=== PATIENT | female | born 1950 | race Caucasian/White ===

== ENCOUNTER 2017-05-27 06:56 | Day surgery (SDC) | payer MEDICARE ==
--- NOTE | 2017-05-18 08:17 | HP ---
CC: Dr. Alonzo * ADMITTING HISTORY AND PHYSICAL: DATE OF ADMISSION: 05/27/17 AGE/SEX: 66 years, female. SURGEON: Dr. Kimbrough. PREOPERATIVE DIAGNOSES: 1. Calculus, right ureter. 2. Right hydronephrosis. PLANNED PROCEDURE: Right ureteroscopy, possible laser and stent insertion. HISTORY OF PRESENT ILLNESS: Dorinda Ledbetter is a 66-year-old lady who I had evaluated in November 2016 for calculus in the right ureter. She continued to have episodic pain for the last 5 to 6 months secondary to this and was recently noted to have a 9 x 5 x 6 mm calculus in the right distal ureter with very mild right hydronephrosis. It seems that this is a same calculus that has been bothering her for the last 5 to 6 months and she is now being brought in for right ureteroscopy. PAST MEDICAL HISTORY: Significant for: 1. Recurrent renal calculi. 2. Asthma. MEDICATIONS: On admission, 1. Prempro 0.3 mg daily. 2. Asmanex inhaler p.r.n. 3. Rhinocort nasal spray p.r.n. ALLERGIES: No known drug allergies (records have gastric issues with several antibiotics, but no allergies.) SOCIAL HISTORY: She is a former smoker, who quit 5 years ago. REVIEW OF SYSTEMS: She is otherwise in excellent health. She denies any chest pain or shortness of breath. PHYSICAL EXAMINATION GENERAL: Reveals a pleasant, mildly uncomfortable middle age lady. VITAL SIGNS: Blood pressure is 120/82, pulse 83 per minute and regular, temperature 96.2, oxygen saturation 99% on room air. LUNGS: Clear bilaterally. CARDIOVASCULAR: Regular rate and rhythm. S1, S2. ABDOMEN: Soft with mild right flank tenderness. IMPRESSION: This 66-year-old lady with episodic right flank pain off and on for the last 6 months secondary to a calculus in the right ureter. PLAN: Left ureteroscopy, possible laser and stent insertion. [id number]/[facility] [place] #: [id number] [facility]
--- NOTE | 2017-05-26 14:29 | HP ---
ADMITTING HISTORY AND PHYSICAL: DATE OF ADMISSION: 05/27/17 ADMITTING DIAGNOSES: 1. Calculus, right ureter. 2. Right hydronephrosis. PLANNED PROCEDURE: Right ureteroscopy, possible laser and stent insertion. HISTORY OF PRESENT ILLNESS: Dorinda Ledbetter is a 67-year-old lady who had originally been evaluated in November 2016 for a calculus in the right ureter. She continues to have episodic pain for the last 5 to 6 months and was recently noted to have a 9 x 5 x 6 mm calculus in the right distal ureter with mild right hydronephrosis. It seems to be that this is the same calculus that has been bothering her for the last 5 to 6 months and she is now being brought in for right ureteroscopy. PAST MEDICAL HISTORY: Significant for: 1. Recurrent renal calculi. 2. Asthma. MEDICATIONS ON ADMISSION: 1. Prempro 0.3 mg daily. 2. Asmanex inhaler p.r.n. 3. Rhinocort nasal spray p.r.n. ALLERGIES: No known drug allergies (has gastric issues with several antibiotics , but no true allergies). SMOKING HISTORY: She is a former smoker who quit 5 years ago. REVIEW OF SYSTEMS: She is otherwise in excellent health. She denies any chest pain or shortness of breath. There is no history of diabetes mellitus or any other major systemic illness. PHYSICAL EXAMINATION GENERAL: Reveals a pleasant, mildly uncomfortable middle-aged lady. VITAL SIGNS: Blood pressure is 120/82, pulse 83 per minute and regular, temperature 96.2, oxygen saturation 99% on room air. LUNGS: Clear bilaterally. CARDIOVASCULAR EXAM: Regular rate and rhythm. S1, S2. ABDOMEN: Soft with mild right flank tenderness. IMPRESSION: A 67-year-old lady with episodic right flank pain off and on for the last 6 months secondary to a calculus in the right ureter. PLAN: Right ureteroscopy, possible laser and stent insertion. [id number]/[facility] #: [id number] [facility]
[~2017-05-27 06:56] MED LIST: Buffered Lidocaine 0.9% SYRIN* 5 ML/SYR SYRINGE INTRADERM ONE; Famotidine IV* 10 MG/ML 2 ML (20 mg) IV ONE
[2017-05-27] MEDS ORDERED: Famotidine IV* 10 MG/ML 2 ML (20 mg) ONE (06:58)
[2017-05-27] MEDS ORDERED: Iohexol 180 (CONTRAST) 10 ML SDV IV ONE (08:08)
[2017-05-27] MEDS ORDERED: fentaNYL* 50 MCG/ML 2 ML VIAL (100 MCG VIAL) ONE (08:36)
[2017-05-27] MEDS ORDERED: Midazolam* 1 MG/ML 5 ML VIAL (5 MG) ONE (08:36)
[2017-05-27] MEDS ORDERED: Dexamethasone IV* 4 MG/ML 1 ML (4 MG) ONE (08:37)
[2017-05-27] MEDS ORDERED: Ketorolac INJ* 30 MG/ML 1 ML VIAL ONE (08:37)
[2017-05-27] MEDS ORDERED: Ondansetron INJ* 2 MG/ML VIAL ONE (08:37)
[2017-05-27] MEDS ORDERED: Propofol* 10 MG/ML 20 ML BTL IV PUSH ONE (08:37)
[2017-05-27] MEDS ORDERED: Lidocaine 2% PF * 5 ML VIAL ONE (08:37)
[2017-05-27] MEDS ORDERED: DiMENhydriNATE IV* 50 MG/ML VIAL ONE (08:37)
[2017-05-27] MEDS ORDERED: Chloroprocaine 2%* 20 ML VIAL ONE (09:04)
[2017-05-27] MEDS ORDERED: oxyCODONE TAB* 5 MG TAB PO PRN (10:02)
[2017-05-27] MEDS ORDERED: DiMENhydriNATE IV* 50 MG/ML VIAL IV PUSH PRN (10:02)
[2017-05-27] MEDS ORDERED: Acetaminophen TAB* 325 MG PO PRN (10:02)
--- NOTE | 2017-05-27 10:20 | RAD ---
INDICATION: RIGHT ureteral calculus. RIGHT ureteral stent insertion, retrograde pyelogram. COMPARISON: April 21, 2017 abdomen radiograph. TECHNIQUE: 3 seconds fluoroscopy. FINDINGS: Spot images document a RIGHT retrograde urogram with mild caliectasis. RIGHT ureteral stent placed with decompression of the collecting system. IMPRESSION: Procedural fluoroscopy. CPT II Codes: 6045F
[2017-05-27] MEDS ORDERED: Acetaminophen TAB* 325 MG ONE (10:30)
[2017-05-27 11:05] VITALS: BP 135/78
--- NOTE | 2017-05-28 04:13 | OP ---
CC: Dr. Miguel Alonzo * DATE OF OPERATION: 05/27/17 - [facility] DATE OF : 54 SURGEON: Roberto Kimbrough MD ANESTHESIOLOGIST: Velma Lewis MD ANESTHESIA: Spinal. PRE-OP DIAGNOSES: 1. Right hydronephrosis. 2. Calculus, right ureter. POST-OP DIAGNOSES: 1. Right hydronephrosis. 2. Calculus, right ureter. OPERATIVE PROCEDURE: Cystoscopy, right retrograde pyelogram, right ureteroscopy , laser lithotripsy of right ureteral calculus and removal of calculus fragments , and right stent insertion. INDICATIONS: Dorinda Ledbetter is a 67-year-old lady who has had episodic right flank pain secondary to a calculus in the right ureter for the last several months. COMPLICATIONS: None. POSTOPERATIVE CONDITION: Stable. OPERATIVE FINDINGS: 9- to 10-mm calculus, right distal ureter with hydronephrosis and hydroureter. STENT USED: 7-Nepalese stent, right ureter. DESCRIPTION OF PROCEDURE: After induction of spinal anesthesia, the patient was placed in dorsal lithotomy position. Sequential compression devices were in place and functioning. Initial cystoscopy revealed a normal-appearing bladder. A guidewire was introduced into the right ureter. Retrograde pyelogram revealed fullness of the right collecting system and fullness of the proximal right ureter. A 6-Nepalese semi-rigid ureteroscope was introduced and advanced under direct vision in the distal ureter about 3 to 4 cm above the ureterovesical junction. A fairly large, 9- to 10-mm calculus was noted. Using a 550 micron holmium laser, this was successfully broken up into multiple fragments and all of the fragments were removed. The ureteroscope was advanced into the proximal ureter to make sure there were no additional stones and none were noted. A 7-Nepalese stent was introduced and positioned under fluoroscopy with good proximal and distal positioning obtained. A Murillo catheter was placed for temporary bladder drainage as I had noted at the onset of surgery that the patient had a moderate degree urethral stenosis. The patient tolerated the procedure satisfactorily and was transferred back to the recovery area in stable condition. [id number]/[facility] #: [id number] MTDD
== END 2017-05-27 11:34 | disposition home or self-care (01) ==
LOC: OR 06:56
PROVIDERS: ATTEND Urology
DX: N13.2 Hydronephrosis with renal and ureteral calculous obstruction (principal); J44.9 Chronic obstructive pulmonary disease, unspecified; Z87.891 Personal history of nicotine dependence
CPT/HCPCS: 74420; 82365; 88300; A9270-GY; C1876; J0696; J1100; J1240; J1580; J1885; J2250; J2400; J2405; J2704; J3010

== ENCOUNTER 2020-10-11 14:02 | Inpatient (IN) ==
[2020-10-11] MEDS ORDERED: NS 0.9% 1000 ml BAG 1,000 ML IV ONE (15:03)
[2020-10-11 15:42] LABS: ABS Lymphocytes 0.8 10^3/ul (1.0-4.8); ABS Monocytes 0.4 10^3/ul (0-0.8); ABS Neutrophils 4.6 10^3/ul (1.5-7.7); Hematocrit 44 % (35-47); Hemoglobin 14.7 g/dL (12.0-16.0); Lymphocyte % 14.2 %; Mean Corpuscular HGB Conc 34 g/dL (31-36); Mean Corpuscular Hemoglobin 29 pg (27-31); Mean Corpuscular Volume 85 fL (80-97); Mean Platelet Volume 8.1 fL (7.4-10.4); Nucleated Red Blood Cells % 0.1; Platelet Count 160 10^3/uL (150-450); Red Cell Distribution Width 15 % (10-15); White Blood Count 5.9 10^3/uL (3.5-10.8)
[2020-10-11 15:58] LABS: Albumin 3.4 g/dL (3.2-5.2); BUN/Creatinine Ratio 29.4 (8-20); Calcium 8.6 mg/dL (8.6-10.3); EGFR African American 80.5 (>60); EGFR Non-African American 66.5 (>60); Globulin 3.4 g/dL (2-4); Potassium 4.3 mmol/L (3.5-5.0); Total Bilirubin 0.2 mg/dL (0.2-1.0); Total Protein 6.8 g/dL (6.4-8.9)
[2020-10-11] MEDS ORDERED: Remdesivir 100 mg Vial 200 MG in NS 0.9% 250 ml 210 ML IV ONE (17:32)
[2020-10-11] MEDS ORDERED: Dexamethasone IV 4 MG/ML VIAL 1 ml VIAL IV SLOW PU ONE (17:32)
[2020-10-11] MEDS ORDERED: Albuterol HFA INHALER 8 gm MDI INH PRN (17:35)
[2020-10-11] MEDS ORDERED: guaiFENesin/CODIENE 100mg/10mg 5 ML UDC PO PRN (17:39)
[2020-10-11] MEDS ORDERED: Al Hydrox/Mg Hydrox/Simet LIQ 30 ML UDC PO PRN (17:42)
[2020-10-11 18:25] LABS: INR 1.13 (0.82-1.09)
[2020-10-11] MEDS: Enoxaparin 40 MG/0.4 ML SYR SUBCUT SCH (20:41)
[2020-10-12 06:10] LABS: INR 1.15 (0.82-1.09)
[2020-10-12 06:24] LABS: Albumin 3.1 g/dL (3.2-5.2); BUN/Creatinine Ratio 30.6 (8-20); C Reactive Protein 72.04 mg/L (<8.01); Calcium 8.4 mg/dL (8.6-10.3); EGFR African American 115.8 (>60); EGFR Non-African American 95.7 (>60); Globulin 3.1 g/dL (2-4); Potassium 4.4 mmol/L (3.5-5.0); Total Bilirubin 0.2 mg/dL (0.2-1.0); Total Protein 6.2 g/dL (6.4-8.9)
[2020-10-12 06:28] LABS: ABS Lymphocytes 0.8 10^3/ul (1.0-4.8); ABS Monocytes 0.2 10^3/ul (0-0.8); ABS Neutrophils 2.7 10^3/ul (1.5-7.7); Hematocrit 43 % (35-47); Hemoglobin 14.1 g/dL (12.0-16.0); Lymphocyte % 21.3 %; Mean Corpuscular HGB Conc 33 g/dL (31-36); Mean Corpuscular Hemoglobin 29 pg (27-31); Mean Corpuscular Volume 88 fL (80-97); Mean Platelet Volume 8.7 fL (7.4-10.4); Nucleated Red Blood Cells % 0.1; Platelet Count 174 10^3/uL (150-450); Red Blood Count 4.88 10^6 /uL (3.70-4.87); Red Cell Distribution Width 16 % (10-15); White Blood Count 3.8 10^3/uL (3.5-10.8)
[2020-10-12] MEDS ORDERED: Mometasone 220 MCG MDI INH SCH ×2 (11:00→18:00)
[2020-10-12] MEDS: GuaiFENesin DM 100 mg/10 mg in 5 ML UDC PO PRN (12:31)
[2020-10-12] MEDS: FLUTICASONE 250 MCG INH SCH (12:31)
[2020-10-12] MEDS ORDERED: Enoxaparin 40 MG/0.4 ML SYR SUBCUT SCH (21:00)
[2020-10-12] MEDS: Sulfamethox/Trimethoprim DS TAB 800/160 mg PO SCH (21:42)
[2020-10-12] MEDS: Remdesivir 100 mg Vial 100 MG in NS 0.9% 250 ml 230 ML IV SCH (21:42)
[2020-10-13] MEDS: FLUTICASONE 250 MCG INH SCH ×2 (00:15→09:10)
[2020-10-13] MEDS: Levalbuterol HFA INHALER MDI INH PRN ×2 (04:21→09:11)
[2020-10-13] MEDS: Enoxaparin 40 MG/0.4 ML SYR SUBCUT SCH (05:21)
[2020-10-13] MEDS: MEDROXYPR PO SCH (09:00)
[2020-10-13] MEDS: ESTROGENS PO SCH (09:00)
[2020-10-13] MEDS: GuaiFENesin DM 100 mg/10 mg in 5 ML UDC PO PRN (09:03)
[2020-10-13] MEDS: Sulfamethox/Trimethoprim DS TAB 800/160 mg PO SCH ×2 (09:08→20:13)
[2020-10-13] MEDS ORDERED: Levalbuterol HFA INHALER MDI INH PRN (09:27)
[2020-10-13 09:41] LABS: ABS Lymphocytes 1.3 10^3/ul (1.0-4.8); ABS Monocytes 0.7 10^3/ul (0-0.8); ABS Neutrophils 8.8 10^3/ul (1.5-7.7); Hematocrit 42 % (35-47); Hemoglobin 14.3 g/dL (12.0-16.0); Lymphocyte % 11.8 %; Mean Corpuscular HGB Conc 34 g/dL (31-36); Mean Corpuscular Hemoglobin 29 pg (27-31); Mean Corpuscular Volume 85 fL (80-97); Mean Platelet Volume 8.2 fL (7.4-10.4); Platelet Count 237 10^3/uL (150-450); Red Blood Count 4.93 10^6 /uL (3.70-4.87); Red Cell Distribution Width 15 % (10-15); White Blood Count 10.8 10^3/uL (3.5-10.8)
[2020-10-13 09:45] LABS: INR 1.12 (0.82-1.09)
[2020-10-13 10:00] LABS: BUN/Creatinine Ratio 34.7 (8-20); Calcium 8.8 mg/dL (8.6-10.3); EGFR African American 97.5 (>60); EGFR Non-African American 80.6 (>60); Magnesium 1.8 mg/dL (1.9-2.7); Potassium 4.1 mmol/L (3.5-5.0)
[2020-10-13] MEDS: Enoxaparin 60 MG/0.6 ML SYR SUBCUT SCH ×2 (12:16→20:15)
[2020-10-13] MEDS: NS 0.9% 1000 ml BAG 1,000 ML IV SCH (12:18)
[2020-10-13] MEDS ORDERED: Iohexol 350 (CONTRAST) 500 ML MDV IV ONE (12:33)
[2020-10-13] MEDS: Levalbuterol HFA INHALER MDI INH SCH ×3 (13:48→19:58)
[2020-10-13 14:06] LABS: Urine Appearance Clear; Urine Bilirubin Negative (Negative); Urine Blood Negative (Negative); Urine Color Yellow; Urine Glucose Negative (Negative); Urine Ketones Negative (Negative); Urine Nitrite Negative (Negative); Urine Protein 1+(30 mg/dL) (Negative); Urine Specific Gravity 1.032 (1.010-1.030); Urine Urobilinogen Negative (Negative)
[2020-10-13 14:09] LABS: Urine Bacteria Absent (Absent); Urine Red Blood Cell Trace(0-2/hpf) (Absent); Urine Squamous Epithelial Cell Present (Absent); Urine White Blood Cell Trace(0-5/hpf) (Absent)
[2020-10-13] MEDS: Remdesivir 100 mg Vial 100 MG in NS 0.9% 250 ml 230 ML IV SCH (21:33)
[2020-10-14] MEDS: FLUTICASONE 250 MCG INH SCH ×3 (01:00→20:54)
[2020-10-14] MEDS: Levalbuterol HFA INHALER MDI INH SCH ×6 (01:19→20:54)
[2020-10-14] MEDS: NS 0.9% 1000 ml BAG 1,000 ML IV SCH (04:16)
[2020-10-14 06:42] LABS: INR 1.23 (0.82-1.09)
[2020-10-14] MEDS: GuaiFENesin DM 100 mg/10 mg in 5 ML UDC PO PRN (08:15)
[2020-10-14] MEDS: Enoxaparin 60 MG/0.6 ML SYR SUBCUT SCH ×2 (08:17→21:37)
[2020-10-14] MEDS: Sulfamethox/Trimethoprim DS TAB 800/160 mg PO SCH ×2 (08:45→21:38)
[2020-10-14] MEDS: ESTROGENS PO SCH (14:06)
[2020-10-14] MEDS: MEDROXYPR PO SCH (14:06)
[2020-10-14] MEDS: Remdesivir 100 mg Vial 100 MG in NS 0.9% 250 ml 230 ML IV SCH (21:34)
[2020-10-15] MEDS: FLUTICASONE 250 MCG INH SCH ×2 (07:37→20:47)
[2020-10-15] MEDS: Levalbuterol HFA INHALER MDI INH SCH ×5 (07:37→20:48)
[2020-10-15] MEDS: Sulfamethox/Trimethoprim DS TAB 800/160 mg PO SCH ×2 (08:52→20:43)
[2020-10-15] MEDS: Enoxaparin 60 MG/0.6 ML SYR SUBCUT SCH ×2 (08:53→20:44)
[2020-10-15 09:18] LABS: INR 1.22 (0.82-1.09)
[2020-10-15] MEDS: MEDROXYPR PO SCH (12:11)
[2020-10-15] MEDS: ESTROGENS PO SCH (12:11)
[2020-10-15] MEDS: Remdesivir 100 mg Vial 100 MG in NS 0.9% 250 ml 230 ML IV SCH (20:55)
[2020-10-16] MEDS: Levalbuterol HFA INHALER MDI INH SCH ×6 (01:44→20:04)
[2020-10-16] MEDS: FLUTICASONE 250 MCG INH SCH ×2 (07:14→20:05)
[2020-10-16 08:27] LABS: INR 1.21 (0.82-1.09)
[2020-10-16] MEDS: Enoxaparin 60 MG/0.6 ML SYR SUBCUT SCH ×2 (09:12→20:34)
[2020-10-16] MEDS: GuaiFENesin DM 100 mg/10 mg in 5 ML UDC PO PRN ×2 (09:15→14:05)
[2020-10-16] MEDS: Sulfamethox/Trimethoprim DS TAB 800/160 mg PO SCH (12:36)
[2020-10-16] MEDS: Remdesivir 100 mg Vial 100 MG in NS 0.9% 250 ml 230 ML IV SCH (21:02)
[2020-10-17] MEDS: Levalbuterol HFA INHALER MDI INH SCH ×5 (00:07→19:55)
[2020-10-17 06:31] LABS: BUN/Creatinine Ratio 33.8 (8-20); Calcium 8.3 mg/dL (8.6-10.3); EGFR African American 104.1 (>60); Magnesium 2.1 mg/dL (1.9-2.7); Potassium 4.3 mmol/L (3.5-5.0); Total Bilirubin 0.4 mg/dL (0.2-1.0)
[2020-10-17] MEDS: GuaiFENesin DM 100 mg/10 mg in 5 ML UDC PO PRN (09:01)
[2020-10-17] MEDS: MEDROXYPR PO SCH (09:04)
[2020-10-17] MEDS: ESTROGENS PO SCH (09:04)
[2020-10-17] MEDS: Enoxaparin 60 MG/0.6 ML SYR SUBCUT SCH ×2 (09:06→20:31)
[2020-10-17] MEDS: FLUTICASONE 250 MCG INH SCH ×2 (10:04→20:04)
[2020-10-18] MEDS: Levalbuterol HFA INHALER MDI INH SCH ×4 (01:20→20:34)
[2020-10-18] MEDS: FLUTICASONE 250 MCG INH SCH ×2 (08:08→20:34)
[2020-10-18] MEDS: Enoxaparin 60 MG/0.6 ML SYR SUBCUT SCH ×2 (09:59→20:17)
[2020-10-19] MEDS: Levalbuterol HFA INHALER MDI INH SCH ×4 (01:01→20:41)
[2020-10-19] MEDS: FLUTICASONE 250 MCG INH SCH ×2 (08:18→20:42)
[2020-10-19] MEDS ORDERED: Dexamethasone IV 4 MG/ML VIAL 1 ml VIAL IV SLOW PU SCH (09:00)
[2020-10-19] MEDS: Dexamethasone IV 4 MG/ML VIAL 1 ml VIAL IV SLOW PU SCH (09:36)
[2020-10-19] MEDS: Enoxaparin 60 MG/0.6 ML SYR SUBCUT SCH ×2 (09:36→20:36)
[2020-10-19] MEDS: ESTROGENS PO SCH (09:38)
[2020-10-19] MEDS: MEDROXYPR PO SCH (09:38)
[2020-10-20] MEDS: Levalbuterol HFA INHALER MDI INH SCH ×4 (01:03→19:57)
[2020-10-20] MEDS: FLUTICASONE 250 MCG INH SCH ×2 (07:32→19:58)
[2020-10-20] MEDS: Dexamethasone IV 4 MG/ML VIAL 1 ml VIAL IV SLOW PU SCH (10:22)
[2020-10-20] MEDS: Enoxaparin 60 MG/0.6 ML SYR SUBCUT SCH ×2 (10:22→20:03)
[2020-10-21] MEDS: Levalbuterol HFA INHALER MDI INH SCH ×4 (00:54→20:14)
[2020-10-21] MEDS: FLUTICASONE 250 MCG INH SCH (07:48)
[2020-10-21] MEDS: Dexamethasone IV 4 MG/ML VIAL 1 ml VIAL IV SLOW PU SCH (09:44)
[2020-10-21] MEDS: Enoxaparin 60 MG/0.6 ML SYR SUBCUT SCH ×2 (09:44→20:48)
[2020-10-21] MEDS: MEDROXYPR PO SCH (09:44)
[2020-10-21] MEDS: ESTROGENS PO SCH (09:44)
[2020-10-21] MEDS: Mometasone/Formoter 100/5 MDI INH SCH ×2 (13:43→20:14)
[2020-10-22] MEDS: Levalbuterol HFA INHALER MDI INH SCH ×4 (01:20→18:11)
[2020-10-22 07:03] LABS: Hematocrit 40 % (35-47); Hemoglobin 13.4 g/dL (12.0-16.0); Mean Corpuscular HGB Conc 33 g/dL (31-36); Mean Corpuscular Hemoglobin 29 pg (27-31); Mean Corpuscular Volume 86 fL (80-97); Mean Platelet Volume 8.1 fL (7.4-10.4); Platelet Count 395 10^3/uL (150-450); Red Blood Count 4.66 10^6 /uL (3.70-4.87); Red Cell Distribution Width 15 % (10-15); White Blood Count 16.8 10^3/uL (3.5-10.8)
[2020-10-22 07:08] LABS: BUN/Creatinine Ratio 43.1 (8-20); Calcium 8.5 mg/dL (8.6-10.3); EGFR African American 97.5 (>60); EGFR Non-African American 80.6 (>60); Potassium 4.1 mmol/L (3.5-5.0)
[2020-10-22 07:35] LABS: ABS Lymphocytes 1.7 10^3/ul (1.0-4.8); ABS Monocytes 1.3 10^3/ul (0-0.8); ABS Neutrophils 13.8 10^3/ul (1.5-7.7); Eosinophil % 0.1 %; Lymphocyte % 10.4 %
[2020-10-22] MEDS: Mometasone/Formoter 100/5 MDI INH SCH ×2 (07:52→19:23)
[2020-10-22] MEDS: Enoxaparin 60 MG/0.6 ML SYR SUBCUT SCH ×2 (09:20→20:22)
[2020-10-22 15:58] LABS: C Reactive Protein 1.59 mg/L (<8.01)
[2020-10-22] MEDS: SPIRIVA Respimat (tiotropium) 2.5 mcg/inh Inhaler INH SCH (16:55)
[2020-10-23] MEDS: Levalbuterol HFA INHALER MDI INH SCH ×3 (01:16→13:05)
[2020-10-23 06:48] LABS: Hematocrit 41 % (35-47); Hemoglobin 13.3 g/dL (12.0-16.0); Mean Corpuscular HGB Conc 33 g/dL (31-36); Mean Corpuscular Hemoglobin 28 pg (27-31); Mean Corpuscular Volume 87 fL (80-97); Platelet Count 352 10^3/uL (150-450); Red Blood Count 4.69 10^6 /uL (3.70-4.87); Red Cell Distribution Width 15 % (10-15)
[2020-10-23] MEDS: Mometasone/Formoter 100/5 MDI INH SCH (07:36)
[2020-10-23] MEDS: SPIRIVA Respimat (tiotropium) 2.5 mcg/inh Inhaler INH SCH (07:38)
[2020-10-23] MEDS: Enoxaparin 60 MG/0.6 ML SYR SUBCUT SCH (09:06)
[2020-10-23] MEDS: ESTROGENS PO SCH (09:08)
[2020-10-23] MEDS: MEDROXYPR PO SCH (09:08)
[2020-10-23 11:08] VITALS: BP 105/58
== END 2020-10-23 14:30 | disposition home or self-care (01) | DRG 177 ==
LOC: ED 14:02 → MED 17:43 → ICU 10-18 08:56 → MED 10-19 14:37
PROVIDERS: ADMIT Internal Medicine; ATTEND Internal Medicine